=== PATIENT | female | born 1990 | race Caucasian/White ===

== ENCOUNTER 2019-10-04 11:38 | Outpatient (CLI) | payer OTHER ==
[2019-10-04] VITALS (21 sets, daily range): BP systolic 113–142; BP diastolic 66–94
== END 2019-10-04 23:59 | disposition home or self-care (01) ==
LOC: CARD DIAG 11:38
PROVIDERS: ATTEND Internal Medicine Cardiovascular Disease
DX: R42 Dizziness and giddiness (principal)
CPT/HCPCS: 93660